=== PATIENT | female | born 1935 | race Caucasian/White ===

== ENCOUNTER 2018-02-25 17:47 | Observation (INO) | payer OTHER ==
--- NOTE | 2018-02-25 18:25 | EDPHY ---
H & P Time Seen by Provider: 02/25/18 18:17 HPI/ROS: Chief complaint. Nausea, fever HPI. Patient is a 82-year-old female visiting from [place]. She has frequent UTIs. 2 days ago she had similar symptoms and went to urgent care where UTI was diagnosed. She was started on Bactrim. She had vomiting at the onset but now has continued nausea without vomiting. She has had fevers to 99.7 treated with Tylenol. She complains of slight fullness to head. She has some crampy low abdominal pain this afternoon but not now. No diarrhea. No chest discomfort or trouble breathing. ROS Constitutional. Low-grade fever Eyes. no problems with vision ENT. no sore throat, no nasal drainage Cardiovascular. no chest pain Respiratory. no shortness of breath, no cough Abdominal. Abdominal pain earlier but not now. Continuing nausea . no problems urinating MS. no calf pain/swelling, no neck/back pain, no joint pain Skin. no rash Lymph. no swollen glands Neuro. no headache, no dizziness, no difficulty walking or with speech Past Medical/Surgical History: Past medical history seen for aortic valve repair, sarcoma, thyroidectomy Social History: , nonsmoker, no alcohol Smoking Status: Never smoked Physical Exam: General Appearance: Alert well-developed female mild distress vital signs are stable Eyes: Pupils equal and round no pallor or injection. ENT, Mouth: Mucous membranes are moist. Respiratory: There are no retractions, lungs are clear to auscultation. Cardiovascular: Regular rate and rhythm. Gastrointestinal: Abdomen is soft and nontender, no masses, bowel sounds normal. Neurological: Awake and alert, sensory and motor exams grossly normal. Skin: Warm and dry, no rashes. Musculoskeletal: Neck is supple nontender. Extremities symmetrical, full range of motion. Psychiatric: Patient is oriented X 3, there is no agitation. Constitutional: Initial Vital Signs Temperature (C) 36.7 C 02/25/18 17:49 Heart Rate 71 02/25/18 17:49 Respiratory Rate 18 02/25/18 17:49 Blood Pressure 164/88 H 02/25/18 17:49 O2 Sat (%) 94 02/25/18 17:49 O2 Delivery Mode Room Air Allergies/Adverse Reactions: levofloxacin [From Levaquin] Allergy (Verified 02/25/18 17:49) Home Medications: Medication Instructions Recorded [facility] THYROID 02/25/18 Bactrim DS 02/25/18 Medical Decision Making Procedures: IV normal saline, Zofran ED Course/Re-evaluation: Re-evaluation patient is stable. Patient and her family and I discussed laboratory evaluation, treatment plan including recommendation for admission. She expresses understanding and agreement I consulted discussed case with Dr. Tineo, hospitalist, who agrees to the admission Differential Diagnosis: Patient is hyponatremia with recent diagnosis of UTI. They are visiting from [place] and with UTI and altitude she has been drinking lots of water. I think that this is delusional hyponatremia. It appears that the urinary tract infection is resolving - Data Points Laboratory Results: Laboratory Results 02/25/18 18:30 02/25/18 18:30 02/25/18 02/25/18 02/25/18 19:10 19:10 18:30 WBC RBC Hgb Hct MCV MCH MCHC RDW Plt Count MPV Neut % (Auto) Lymph % (Auto) [place] % (Auto) Eos % (Auto) Baso % (Auto) Nucleat RBC Rel Count Absolute Neuts (auto) Absolute Lymphs (auto) Absolute Monos (auto) Absolute Eos (auto) Absolute Basos (auto) Absolute Nucleated RBC Immature Gran % Immature Gran # RBC/WBC/PLT Morphology Platelet Estimate Sodium 124 mEq/L L mEq/L (135-145) Potassium 4.2 mEq/L mEq/L (3.3-5.0) Chloride 88 mEq/L L mEq/L (97-110) Carbon Dioxide 26 mEq/l mEq/l (22-31) Anion Gap 10 mEq/L mEq/L (8-16) BUN 12 mg/dL mg/dL (7-23) Creatinine 0.7 mg/dL mg/dL (0.6-1.0) Estimated GFR > 60 Glucose 111 mg/dL H mg/dL (70-100) Calcium 9.5 mg/dL mg/dL (8.5-10.4) Urine Color YELLOW Urine Appearance CLEAR Urine pH 6.0 (5.0-7.5) Ur Specific [place] 1.009 (1.002-1.030) Urine Protein NEGATIVE (NEGATIVE) Urine Ketones TRACE H (NEGATIVE) Urine Blood NEGATIVE (NEGATIVE) Urine Nitrate NEGATIVE (NEGATIVE) Urine Bilirubin NEGATIVE (NEGATIVE) Urine Urobilinogen NEGATIVE EU EU (0.2-1.0) Ur Leukocyte Esterase TRACE H (NEGATIVE) Urine RBC 1-3 /hpf /hpf (0-3) Urine WBC 3-5 /hpf H /hpf (0-3) Ur Epithelial Cells NONE SEEN /lpf /lpf (NONE-1+) Urine Mucus TRACE /lpf /lpf (NONE-1+) Ur Random Sodium Pending Urine Glucose NEGATIVE (NEGATIVE) 02/25/18 18:30 WBC 5.47 10^3/uL 10^3/uL (3.80-9.50) RBC 4.55 10^6/uL 10^6/uL (4.18-5.33) Hgb 13.6 g/dL g/dL (12.6-16.3) Hct 38.6 % % (38.0-47.0) MCV 84.8 fL fL (81.5-99.8) MCH 29.9 pg pg (27.9-34.1) MCHC 35.2 g/dL g/dL (32.4-36.7) RDW 12.6 % % (11.5-15.2) Plt Count 214 10^3/uL 10^3/uL (150-400) MPV 10.2 fL fL (8.7-11.7) Neut % (Auto) 81.9 % H % (39.3-74.2) Lymph % (Auto) 9.5 % L % (15.0-45.0) [place] % (Auto) 7.5 % % (4.5-13.0) Eos % (Auto) 0.2 % L % (0.6-7.6) Baso % (Auto) 0.5 % % (0.3-1.7) Nucleat RBC Rel Count 0.0 % % (0.0-0.2) Absolute Neuts (auto) 4.48 10^3/uL 10^3/uL (1.70-6.50) Absolute Lymphs (auto) 0.52 10^3/uL L 10^3/uL (1.00-3.00) Absolute Monos (auto) 0.41 10^3/uL 10^3/uL (0.30-0.80) Absolute Eos (auto) 0.01 10^3/uL L 10^3/uL (0.03-0.40) Absolute Basos (auto) 0.03 10^3/uL 10^3/uL (0.02-0.10) Absolute Nucleated RBC 0.00 10^3/uL 10^3/uL (0-0.01) Immature Gran % 0.4 % % (0.0-1.1) Immature Gran # 0.02 10^3/uL 10^3/uL (0.00-0.10) RBC/WBC/PLT Morphology TNP Platelet Estimate TNP Sodium Potassium Chloride Carbon Dioxide Anion Gap BUN Creatinine Estimated GFR Glucose Calcium Urine Color Urine Appearance Urine pH Ur Specific [place] Urine Protein Urine Ketones Urine Blood Urine Nitrate Urine Bilirubin Urine Urobilinogen Ur Leukocyte Esterase Urine RBC Urine WBC Ur Epithelial Cells Urine Mucus Ur Random Sodium Urine Glucose Medications Given: Discontinued Medications Sodium Chloride (Ns) 1,000 mls @ 0 mls/hr IV ONCE ONE; Wide Open PRN Reason: Protocol Stop: 02/25/18 18:37 Last Admin: 02/25/18 19:11 Dose: 1,000 mls Ondansetron HCl (Zofran) 4 mg IVP EDNOW ONE Stop: 02/25/18 18:57 Last Admin: 02/25/18 19:11 Dose: 4 mg Departure - Departure Disposition: [facility] Clinical Impression: Hyponatremia Condition: Fair
[2018-02-25] MEDS ORDERED: NS 1,000 ML IV ONE (18:36)
[2018-02-25] MEDS ORDERED: ONDANSETRON 4 MG/2 ML VIAL IVP ONE (18:56)
[2018-02-25 19:11] LABS: PLATELET COUNT 214 10^3/uL (150-400)
[2018-02-25] MEDS ORDERED: ONDANSETRON DISINTEGRATING 4 MG TAB PO PRN (20:45)
[2018-02-25] MEDS ORDERED: diphenhydrAMINE 25 MG CAP PO PRN (20:45)
[2018-02-25] MEDS ORDERED: ACETAMINOPHEN 325 MG TAB PO PRN (20:45)
[2018-02-25] MEDS ORDERED: PROMETHAZINE HCL 25 MG/ML INJ IVP PRN (20:45)
[2018-02-25] MEDS ORDERED: ONDANSETRON 4 MG/2 ML VIAL IVP PRN (20:45)
[2018-02-25] MEDS ORDERED: PROMETHAZINE HCL 25 MG TAB PO PRN (20:45)
--- NOTE | 2018-02-25 22:27 | PDGENHP ---
History and Physical - Chief Complaint Acute vomiting - History of Present Illness Primary care provider in [place] HPI: 82-year-old female presenting with acute vomiting characterized as nonbloody emesis, brown, associated with subjective fever, myalgias, generalized weakness, nausea crampy lower abdominal discomfort, with onset of symptoms 2-3 days prior. Duration has been intermittent thereafter. The patient's daughter 1st noted "spacey"appearance of the patient 2 days prior to this presentation, and she brought her to Urgent Care. The patient revealed at that time that she had been experiencing increased urinary frequency as well as crampy lower abdominal discomfort. At urgent care showed a urinalysis and urine culture drawn, was told she had a urinary tract infection, and was started on Bactrim. After approximately 24 hr of initiating the medication, the patient reports that her symptoms were significantly alleviated, but then she began experiencing recurrent nausea vomiting and myalgias on the day prior to this presentation, escalating and resulting in presentation today. The patient reports that she has been adherent to her Bactrim, and she had taken some Zofran as well with incomplete the relief of her symptoms. She has been attempting to maintain good oral intake of solids and liquids, after she had received the advice that she should drink as much water as possible. Over this interval she has been notably vomiting, so it is unclear as to whether the patient has been able to tolerate all of the liquid she has attempted to consume. She has also attempted to consume solid containing liquids including broth as well as solid foods. She noted that her urine output on the day of presentation had declined, but then was somewhat increased after receiving 1 L normal saline. 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 Esophageal stricture. Chronically abnormal chest x-ray of unclear etiology. Aortic stenosis with aortic valve replacement and postoperative atrial fibrillation, subsequent PVCs comma recently unremarkable echocardiogram - Surgical History Additional surgical history: Partial thyroidectomy in 2017. Bioprosthetic aortic valve replacement 2012. Right chest wall sarcoma surgical removal - Family History Additional family history: No recent sick family contacts - Social History Smoking Status: Never smoked Alcohol Use: None Drug Use: None Additional social history: Patient is originally from [facility] but she currently resides in [place], has traveled to [place] with her family in began experiencing the aforementioned symptoms on the day of arrival in [facility], where she is currently vacation Review of Systems Review of Systems: ROS: 10pt was reviewed & negative except for what was stated in HPI & below Constitutional: Reports: fever, weakness EENMT: Reports: other (Head fullness, sinus congestion) Gastrointestinal: Reports: vomitting, abdominal pain, nausea Genitourinary: Reports: frequency Muscolosketal: Reports: muscle pain Neurological: Reports: headache Physical Exam Physical Exam: Temp Pulse Resp BP Pulse Ox 36.7 C 59 L 16 141/79 H 92 02/25/18 17:49 02/25/18 21:06 02/25/18 21:06 02/25/18 21:06 02/25/18 21:06 Constitutional: no apparent distress, appears nourished, not in pain Eyes: PERRL, anicteric sclera, EOMI Ears, Nose, Mouth, Throat: moist mucous membranes, hearing normal, ears appear normal, no oral mucosal ulcers Cardiovascular: systolic murmur (2/6 systolic murmur at the right sternal border and apex), No irregularly irregular, No tachycardia, No edema Respiratory: no respiratory distress, no rales or rhonchi, clear to auscultation Gastrointestinal: normoactive bowel sounds, soft, non-tender abdomen, no palpable masses, No guarding, No distension Genitourinary: other (Bladder fullness and mild tenderness) Skin: warm, No abrasion, No rash Musculoskeletal: full muscle strength, no muscle tenderness Neurologic: AAOx3, sensation intact bilaterally, No weakness Psychiatric: interacting appropriately, not anxious, not encephalopathic, thought process linear Lymph, Heme, Immunologic: other (Mildly tender 2 cm bilateral submandibular lymph nodes without any anterior posterior cervical lymphadenopathy) Lab Data & Imaging Review 02/25/18 18:30 02/25/18 18:30 WBC 5.47 10^3/uL (3.80-9.50) 02/25/18 18:30 RBC 4.55 10^6/uL (4.18-5.33) 02/25/18 18:30 Hgb 13.6 g/dL (12.6-16.3) 02/25/18 18:30 Hct 38.6 % (38.0-47.0) 02/25/18 18:30 MCV 84.8 fL (81.5-99.8) 02/25/18 18:30 MCH 29.9 pg (27.9-34.1) 02/25/18 18:30 MCHC 35.2 g/dL (32.4-36.7) 02/25/18 18:30 RDW 12.6 % (11.5-15.2) 02/25/18 18:30 Plt Count 214 10^3/uL (150-400) 02/25/18 18:30 MPV 10.2 fL (8.7-11.7) 02/25/18 18:30 Neut % (Auto) 81.9 % (39.3-74.2) H 02/25/18 18:30 Lymph % (Auto) 9.5 % (15.0-45.0) L 02/25/18 18:30 [place] % (Auto) 7.5 % (4.5-13.0) 02/25/18 18:30 Eos % (Auto) 0.2 % (0.6-7.6) L 02/25/18 18:30 Baso % (Auto) 0.5 % (0.3-1.7) 02/25/18 18:30 Nucleat RBC Rel Count 0.0 % (0.0-0.2) 02/25/18 18:30 Absolute Neuts (auto) 4.48 10^3/uL (1.70-6.50) 02/25/18 18:30 Absolute Lymphs (auto) 0.52 10^3/uL (1.00-3.00) L 02/25/18 18:30 Absolute Monos (auto) 0.41 10^3/uL (0.30-0.80) 02/25/18 18:30 Absolute Eos (auto) 0.01 10^3/uL (0.03-0.40) L 02/25/18 18:30 Absolute Basos (auto) 0.03 10^3/uL (0.02-0.10) 02/25/18 18:30 Absolute Nucleated RBC 0.00 10^3/uL (0-0.01) 02/25/18 18:30 Immature Gran % 0.4 % (0.0-1.1) 02/25/18 18:30 Immature Gran # 0.02 10^3/uL (0.00-0.10) 02/25/18 18:30 RBC/WBC/PLT Morphology TNP 02/25/18 18:30 Platelet Estimate TNP 02/25/18 18:30 Sodium 124 mEq/L (135-145) L 02/25/18 18:30 Potassium 4.2 mEq/L (3.3-5.0) 02/25/18 18:30 Chloride 88 mEq/L (97-110) L 02/25/18 18:30 Carbon Dioxide 26 mEq/l (22-31) 02/25/18 18:30 Anion Gap 10 mEq/L (8-16) 02/25/18 18:30 BUN 12 mg/dL (7-23) 02/25/18 18:30 Creatinine 0.7 mg/dL (0.6-1.0) 02/25/18 18:30 Estimated GFR > 60 02/25/18 18:30 Glucose 111 mg/dL (70-100) H 02/25/18 18:30 Calcium 9.5 mg/dL (8.5-10.4) 02/25/18 18:30 TSH 2.990 uIU/mL (0.465-4.680) 02/25/18 18:30 Urine Color YELLOW 02/25/18 19:10 Urine Appearance CLEAR 02/25/18 19:10 Urine pH 6.0 (5.0-7.5) 02/25/18 19:10 Ur Specific [place] 1.009 (1.002-1.030) 02/25/18 19:10 Urine Protein NEGATIVE (NEGATIVE) 02/25/18 19:10 Urine Ketones TRACE (NEGATIVE) H 02/25/18 19:10 Urine Blood NEGATIVE (NEGATIVE) 02/25/18 19:10 Urine Nitrate NEGATIVE (NEGATIVE) 02/25/18 19:10 Urine Bilirubin NEGATIVE (NEGATIVE) 02/25/18 19:10 Urine Urobilinogen NEGATIVE EU (0.2-1.0) 02/25/18 19:10 Ur Leukocyte Esterase TRACE (NEGATIVE) H 02/25/18 19:10 Urine RBC 1-3 /hpf (0-3) 02/25/18 19:10 Urine WBC 3-5 /hpf (0-3) H 02/25/18 19:10 Ur Epithelial Cells NONE SEEN /lpf (NONE-1+) 02/25/18 19:10 Urine Mucus TRACE /lpf (NONE-1+) 02/25/18 19:10 Ur Random Sodium 39 mEq/L (30-90) 02/25/18 19:10 Urine Glucose NEGATIVE (NEGATIVE) 02/25/18 19:10 Assessment & Plan Assessment: 82-year-old female presents with a constellation of symptoms including nausea, vomiting, myalgias, abdominal discomfort, headache Plan: 1. Hyponatremia. Acute, new problem this provider, further workup indicated. Potential cause of the patient's general symptoms, most likely secondary to increased free water consumption since arriving in [place] with urine sodium level of 39 -status post 1 L normal saline in the emergency department, hold further IV fluids as this is likely euvolemic hyponatremia -repeat serum sodium level in a.m., monitor urine output -free water restriction 1.5 L, encourage solid containing liquids -supportive care for any related symptoms including nausea and myalgias 2. Possible urinary tract infection. She reports recent symptoms including urinary frequency and suprapubic discomfort consistent with her previous symptoms of urinary tract infection, status post initiating Bactrim 2 days ago -possible that her urinary tract infection was under treated if her organism is resistant to Bactrim which is to be determined -obtain outside records from Urgent Care, get urinalysis and urine culture to confirm diagnosis and ensure that the antibiotic treatment is tailored to the correct organism sensitivity -in the interim, adjust antibiotics to a different class comma ceftriaxone IV can be easily converted to cefpodoxime 200 mg twice daily if she requires 3rd generation cephalosporin based on sensitivities 3. Nausea, vomiting, headache, subjective fever, sinus congestion, abdominal discomfort. The symptoms may be entirely attributable to hyponatremia but they could be secondary to a viral syndrome and is prudent to send respiratory viral panel at this time as well as consider altitude sickness as a possibility given her [place] 8000 [place] -treat the above conditions, treat the symptoms supportively, gauge effect -check RVP Diet. Regular with free water restriction Code. Full Prophylaxis. High risk, Lovenox 40 Disposition. Anticipated discharge is 02/26, pending stabilization of conditions outlined above. I have discussed patient's presentation with Dr. Abhi Zuniga, he and I both agree the patient is currently symptomatic and requires ongoing workup and management for the aforementioned issues.
[2018-02-26] MEDS ORDERED: ENOXAPARIN 40 MG/0.4 ML SYR SC SCH (09:00)
[2018-02-26] MEDS ORDERED: THYROID 60 MG TAB PO SCH (09:00)
[2018-02-26 11:50] VITALS: BP 176/75
--- NOTE | 2018-02-26 14:20 | ASMTCMCOM ---
CM Note CM Note Notes: Spoke w/RN, pt visiting from [place]. She has been cleared by PT, anticipate she will dc w/support of family when medically stable. CM available for any changes. DC Plan: Independent Date Signed: 02/26/2018 02:19 PM Electronically Signed By:Jacquelyn Luo RN
--- NOTE | 2018-02-26 22:56 | PDDCSUM ---
Discharge Summary Discharge Summary: Date of Admission: February 25, 2018 Date of Discharge: February 26, 2018 Discharge Diagnoses: Hyponatremia, improved Primary polydipsia Acute UTI Abdominal pain, improved Nausea and vomiting, resolved Admission Diagnoses: Hyponatremia Possible UTI Nausea, vomiting Headache, fever, Sinus congestion Abdominal discomfort Consultants: None. Hospital Course: The patient is an 82-year-old female with a history of hypothyroidism who was admitted for acute vomiting and found to have hyponatremia with a sodium level of 124. She has been traveling with her from [place] and started to develop generalized weakness and fatigue. Her family urged her to go to an Urgent Care, where she was diagnosed with a "full blown UTI". Patient had been put on Bactrim. However, she developed nausea, vomiting, myalgias, and abdominal discomfort. Two days later she presented to the hospital, where her sodium was found to be 124. She was given 1 L IV NS and IV antiemetics and IV ceftriaxone. The next day her sodium was back to 134 and the patient was feeling improved. She denied any nausea or vomiting and her other symptoms were better. Her initial set of symptoms were attributed to drinking too much water and either adverse effect of Bactrim or lack of response to Bactrim. She was switched to Keflex, since the Urgent Care culture reported normal skin gwendolyn growth of the urine culture. Patient and her were planning to continue their trip to [facility]. Patient was recommended to see a PCP in 1 week to ensure resolution of residual symptoms and recheck sodium level. She was instructed to restrict fluid intake to no more than 2L daily. Physical Exam: General: The patient is a female who is alert and in no acute distress. HEENT: normocephalic, extraocular movements intact, conjunctivae clear, no lesions on face. Mucous membranes moist. Neck: trachea midline, no visible masses, no external lesions. Abd: soft and nondistended. Musculoskeletal: Normal muscle tone and bulk. Normal gait. Neuro: cranial nerves II XII grossly intact. Intact gross motor and sensory function. Psych: appropriate mood/affect. Skin: +mild pallor. Condition: Stable. Discharged to: Home. Pertinent tests/labs/imaging: UA-3-5 WBC. Sodium on admission 124. Sodium on discharge 09/13 4. TSH 2.99. Respiratory panel-no identified pathogen. Medications: Please see med rec form. New medication-Keflex 500 mg twice daily for 5 more days. Special instructions: Return to emergency department if symptoms worsen. Follow up: Follow up with PCP in 1 week. Less than 30 minutes of total time was spent on counseling and coordination of care for this patient's discharge.
== END 2018-02-26 16:10 | disposition home or self-care (01) ==
LOC: F3E 22:05
PROVIDERS: ADMIT Internal Medicine; ATTEND Internal Medicine
DX: E87.1 Hypo-osmolality and hyponatremia (principal); R11.2 Nausea with vomiting, unspecified; R51 Headache; R50.9 Fever, unspecified; R10.9 Unspecified abdominal pain; Z95.2 Presence of prosthetic heart valve; Z87.440 Personal history of urinary (tract) infections
CPT/HCPCS: 97161; G0378; G8978; G8979; J0696; J1650; J2405; 96374